=== PATIENT | female | born 1980 | race Caucasian/White ===

== ENCOUNTER 2019-09-06 17:01 | Outpatient (CLI) | payer BC, SELFPAY | END 2019-09-06 17:02 | disposition home or self-care (01) | LOC: LAB 17:06 | PROVIDERS: Family Provider Internal Medicine; PCP Nurse Practitioner Family; Visit Provider Nurse Practitioner Family | DX: Z20.818 Contact with and (suspected) exposure to other bacterial communicable diseases (principal) ==

== ENCOUNTER 2019-09-07 08:02 | Outpatient (CLI) | payer BC, SELFPAY | END 2019-09-07 08:03 | disposition home or self-care (01) | PROVIDERS: Family Provider Internal Medicine; PCP Nurse Practitioner Family; Visit Provider Nurse Practitioner Family | DX: Z20.818 Contact with and (suspected) exposure to other bacterial communicable diseases (principal) ==

== ENCOUNTER 2020-03-29 11:50 | Outpatient (CLI) | payer BC, SELFPAY ==
[2020-03-29 13:10] LABS: HCG Quantitative < 0.50 mIU/mL
== END 2020-03-29 11:51 | disposition home or self-care (01) ==
LOC: LAB 11:55
PROVIDERS: PCP Nurse Practitioner Family; Visit Provider Nurse Practitioner Family
DX: N91.2 Amenorrhea, unspecified (principal)
CPT/HCPCS: 84702

== ENCOUNTER → 2020-07-03 11:57 | Outpatient (BNVA) | payer BC, SELFPAY | PROVIDERS: PCP Nurse Practitioner Family; Visit Provider Nurse Practitioner Family | DX: Z20.828 Contact with and (suspected) exposure to other viral communicable diseases (principal) | CPT/HCPCS: 87635 ==

== ENCOUNTER → 2020-08-25 13:50 | Outpatient (BNVA) | payer BC, SELFPAY | PROVIDERS: PCP Nurse Practitioner Family; Visit Provider Nurse Practitioner | DX: Z20.828 Contact with and (suspected) exposure to other viral communicable diseases (principal) | CPT/HCPCS: 87635 ==

== ENCOUNTER 2021-07-29 08:38 | Emergency (ER) | payer BC, SELFPAY ==
[2021-07-29 08:45] VITALS: BP 141/87; PULSE 84; RESP 18; TEMP 36.6; O2SAT 98; BMI 38.9
[2021-07-29 09:09] VITALS: BP 141/87; PULSE 84; RESP 18; TEMP 36.6; O2SAT 98
--- NOTE | 2021-07-29 09:24 | ED_ITS ---
HPI - Back Pain/Injury General: Chief Complaint: Back Pain/Injury Stated Complaint: SCIATIC NERVE PAIN Time Seen by Provider: 07/29/21 09:04 Source: patient Mode of arrival: wheelchair Limitations: no limitations History of Present Illness: HPI Narrative: Patient is a 40-year-old female who presents to ED today with a complaint of right-sided lower back pain over the past several days. Patient states she has had pain with her sciatic nerve before but nothing to this extent. She is complaining of severe pain radiating down her right leg. Patient states she has been taking a 30 mg prednisone taper as well as tramadol for her discomfort but symptoms do not seem to be improving. She is not complaining of saddle anesthesia. No urinary retention or bowel incontinence. Patient does report trouble with ambulation secondary to discomfort. MD elicited complaint: back pain Onset (ago): day(s) Timing: constant Severity: severe Pain scale (0-10): 10 Similar Symptoms Previously: Yes Quality: burning and sharp Location: right lower back Radiation: right leg below the knee Exacerbating factors: movement and walking Relieving factors: none Associated symptoms: Reports difficulty walking (secondary to pain); Deny abdominal pain, chills, dysuria, fatigue, fever(s), hematuria, nausea, syncope, urinary urgency or vomiting Treatments prior to arrival: NSAIDS, prescription analgesics and other (steroids) Work related injury: No Review of Systems Const: Denies: fever(s), chills, body aches, fatigue or malaise Card: Denies: chest pain, palpitations, irregular heart rhythm, edema, sw elling of feet/ankles, lightheadedness, syncope or pre-syncope Resp: Denies: dyspnea GI: Denies: abdominal pain, nausea, vomiting or diarrhea : Denies: flank pain, dysuria, urinary urgency, hematuria, vaginal bleeding or vaginal discharge Musc: Reports: back pain; Denies: neck pain, extremity pain, extremity swelling, joint pain or joint swelling Skin/Breast: Denies: rash Neuro: Reports: difficulty walking (secondary to pain); Denies: headache(s), numbness in extremities, weakness in extremities or sensory changes Physical Exam Const: COMMON NORMALS: no acute distress, patient oriented x3, no limitations and alert GENERAL APPEARANCE: cooperative NUTRITIONAL APPEARANCE: obese ORIENTATION/CONSCIOUSNESS: Yes awake, Yes oriented to person, Yes oriented to place and Yes oriented to time Resp: COMMON NORMALS: normal respiratory effort Cardio: COMMON NORMALS: regular rate and regular rhythm RATE: regular rate RHYTHM: regular rhythm GI: COMMON NORMALS: Normal to inspection, nondistended, normoactive bowel sounds present, Soft to palpation, non-tender, No hepatosplenomegaly present and no masses PALPATION: Yes Soft to palpation and Yes No hepatosplenomegaly present Back/Pelvis: THORACIC SPINE/UPPER BACK: Yes normal to inspection and No thoracic spinal tenderness LUMBAR SPINE/LOWER BACK: Yes normal to inspection, No lumbar spinal tenderness and Yes paraspinal muscle tenderness Lumbar paraspinal muscle tenderness: right PELVIS: Yes buttock abnormal Buttock abnormal laterality: right Right buttock abnormal details: tenderness and Yes sciatic notch tenderness on the right SACROILIAC JOINTS: Yes SI joint(s) abnormal SI joint details: tender to palpation (right) Neuro: COMMON NORMALS: patient oriented x3, moves all extremities, no focal motor deficits and no sensory deficits noted SENSORIUM/ORIENTATION: Yes alert, Yes oriented to person, Yes oriented to place and Yes oriented to time Skin: COMMON NORMALS: no rashes or lesions noted GENERAL SKIN EXAM: no rashes or lesions noted Course Vital Signs: Vital signs: Vital Signs Temperature 97.9 F 07/29/21 09:09 Pulse Rate 84 07/29/21 09:09 Respiratory Rate 18 07/29/21 09:09 Blood Pressure 141/87 07/29/21 09:09 Pulse Oximetry 98 07/29/21 09:09 MDM - Back Pain/Injury MDM Narrative: Medical decision making narrative: Patient with no acute neurologic deficits on history or physical exam. Recommend follow-up with PCP for further evaluation and/or MRI imaging of her back. Patient was able to ambulate here without assistance. Strict return to ED precautions given. Discharge Plan Discharge Patient Disposition: Home Clinical Impression: Lumbar back pain with radiculopathy affecting right lower extremity Condition: Stable Prescriptions: New cyclobenzaprine 10 mg tablet 10 mg PO TID Qty: 14 RF: 0 ibuprofen 800 mg tablet 800 mg PO Q8H PRN (Reason: pain) Qty: 20 RF: 0 hydrocodone-acetaminophen 5-325 mg tablet 1 tab PO Q4-5H PRN (Reason: pain) Qty: 16 RF: 0 Discharge Orders: Discharge ED (Routine); Ordered 07/29/21 Ordered By: Tessy Leahy Referrals: Angela Butler FNP [Primary Care Provider] - Patient Instructions: Lumbar Disc Herniation (ED), Lumbar Radiculopathy (ED), Opioid Safety Activity Restrictions/Additional Instructions: [facility]. We are providing ALL patients with information regarding opiate safety. If you received opiate pain medication during your stay or if you received a prescription for opiate pain medication-please review this handout. If not, you may disregard. Thank you. As we discussed please follow-up with primary care regarding possible MRI imaging of your back if indicated. You may return to the emergency department for worsening or severe back pain, uncontrollable pain, inability to ambulate or care for yourself, inability to urinate, bowel incontinence, or any other concerns you may have. I hope you begin to feel better soon. Coding Level of Care Code ED Director Of Sustainability for [employer] Fwd Exam Detailed
[2021-07-29] MEDS: ondansetron 2 mg/ML SDV 2 mL 4 MG IM (11:07)
[2021-07-29] MEDS: morphine 4 mg/mL SDV 1 mL IM (11:07)
[2021-07-29] MEDS: ketorolac 60 mg/2 mL INJ IM (11:07)
[2021-07-29] MEDS: orphenadrine 30 mg/mL Inj 2 mL 60 MG IM (11:07)
[2021-07-29] MEDS: HYDROmorphone 1 mg/mL INJ 1 mL 0.5 MG SUBCUT (12:36)
== END 2021-07-29 13:01 | disposition home or self-care (01) ==
PROVIDERS: Emergency Provider Physician Assistant; PCP Nurse Practitioner Family
DX: M54.16 Radiculopathy, lumbar region (principal)
CPT/HCPCS: 96372; 99283; J1170; J1885; J2270; J2360; J2405

== ENCOUNTER 2022-03-05 12:09 | Outpatient (CLI) | payer BC, SELFPAY ==
--- NOTE | 2022-03-05 12:15 | MR_ITS ---
WS: [id number] MRI LUMBAR SPINE NONCONTRAST TECHNIQUE: Sagittal T1, T2 and STIR imaging. Axial T1 and T2 imaging. CLINICAL INFORMATION: CHRONIC RADICULAR PAIN OF LOWER BACK COMPARISON: None. FINDINGS: Mild lumbar curve. No acute compression. Large RIGHT pericentral disc extrusion L4-L5 with inferior m igration of disc material. This measures approximately 9 x 21 mm AP by craniocaudal. L1-L2: Normal. L2-L3: Normal. L3-L4: Minimal annular bulging. Mild facet arthropathy. Spinal canal and foramen are patent. L4-L5: RIGHT pericentral disc extrusion with inferior migration of disc material. This results in mod erate central canal stenosis with impingement on traversing RIGHT greater than LEFT L5 nerve roots. M oderate RIGHT to LEFT effacement of the thecal sac. Impingement on the traversing RIGHT S1 nerve root inferiorly. Foramen are patent. L5-S1: Shallow LEFT pericentral protrusion impinges the traversing LEFT S1 nerve root in the subartic ular recess. Recommend correlation LEFT S1 nerve root symptoms. Mild LEFT L5-S1 foraminal narrowing. Mild facet arthropathy. Visualized pelvic bony structures: Normal. Paravertebral soft tissues: Normal. Incidental Tarlov cyst in the sacrum. Partially visualized LEFT ovarian cyst measuring 3.0 cm. This can be further evaluated with brenton d. Incidental nabothian cysts in the cervix. MR/MR lumbar spine wo con* [id number] IMPRESSION: 1. Large RIGHT L4-L5 pericentral disc extrusion with inferior migration of dis c material. This fills RIGHT subarticular recess with moderate central canal st enosis and impingement traversing RIGHT L5 and S1 nerve roots respectively. Rec [facility] spine surgery consultation. 2. Shallow LEFT pericentral protrusion L5-S1 impinges the traversing LEFT S1 n erve root. Mild LEFT L5-S1 foraminal narrowing. 3. Mild L4-L5 and L5-S1 facet arthropathy. 4. Partially visualized LEFT ovarian cyst measuring 3.0 cm. This can be furthe r evaluated with ultrasound.
== END 2022-03-05 12:10 | disposition home or self-care (01) ==
PROVIDERS: PCP Nurse Practitioner Family; Visit Provider Nurse Practitioner Family
DX: M54.16 Radiculopathy, lumbar region (principal); M51.26 Other intervertebral disc displacement, lumbar region; M47.817 Spondylosis without myelopathy or radiculopathy, lumbosacral region; N83.202 Unspecified ovarian cyst, left side; M51.27 Other intervertebral disc displacement, lumbosacral region
CPT/HCPCS: 72148

== ENCOUNTER → 2023-05-19 10:25 | Outpatient (BNVA) | payer BC, SELFPAY | PROVIDERS: Visit Provider Internal Medicine | DX: E78.2 Mixed hyperlipidemia (principal); E11.9 Type 2 diabetes mellitus without complications | CPT/HCPCS: 36415; 80053; 80061; 82044; 83036 ==

== ENCOUNTER → 2023-10-15 11:25 | Outpatient (BNVA) | payer BC, SELFPAY | PROVIDERS: PCP Internal Medicine; Visit Provider Internal Medicine | DX: E11.9 Type 2 diabetes mellitus without complications (principal); E78.2 Mixed hyperlipidemia | CPT/HCPCS: 80053; 80061; 82044; 83036 ==